=== PATIENT | female | born 2000 | race Caucasian/White ===

== ENCOUNTER 2020-07-22 09:41 | Inpatient (IN) ==
[2020-07-22] MEDS ORDERED: Famotidine 20 MG/2 ML VIAL IVP PRN (09:49)
[2020-07-22] MEDS ORDERED: Lidocaine 1% 20 ML MDV ID PRN (09:49)
[2020-07-22] MEDS ORDERED: Naloxone 0.4 MG/ML INJ IVP PRN (09:49)
[2020-07-22] MEDS ORDERED: Ondansetron 4 MG/2 ML VIAL IVP PRN (09:49)
[2020-07-22] MEDS ORDERED: Azithromycin 500 MG in 0.9 % Sodium Chloride 250 ML IVPB ONE (09:49)
[2020-07-22] MEDS ORDERED: miSOPROStoL 25 MCG TABLET PO PRN (09:49)
[2020-07-22] MEDS ORDERED: *HR* Nalbuphine 10 MG/ML AMPUL IV PRN (09:49)
[2020-07-22] MEDS ORDERED: Metoclopramide 10 MG/2 ML VIAL IVP PRN (09:49)
[2020-07-22] MEDS ORDERED: *HR* FentaNYL (PF) 100 MCG/2 ML VIAL EP ONE (10:08)
[2020-07-22] MEDS ORDERED: EPHEDrine 50 MG/ML VIAL IVP PRN (10:08)
[2020-07-22] MEDS ORDERED: Epidural Premix (fent/bupiv) 110 ML EP SCH (10:15)
[2020-07-22] MEDS ORDERED: FLU Vac QV 20-21 (6Month+)/PF 0.5 ML SYRINGE IM ONE (10:28)
[2020-07-22 10:31] LABS: Basophils # 0.1 K/mcL (0.0-0.2); Basophils % 0.6 %; Eosinophils # 0.2 K/mcL (0.0-0.6); Eosinophils % 2.6 %; Hematocrit 33.7 % (35.3-44.9); Immature Granulocytes % 0.4 % (0-4); Mean Corpuscular HGB Conc 32.6 g/dL (31.6-35.5); Mean Corpuscular Hemoglobin 28.2 pg (28.0-33.3); Mean Corpuscular Volume 86.4 fL (83.0-100.0); Mean Platelet Volume 11.7 fL (9.4-12.4); Monocytes # 0.6 K/mcL (0.0-1.3); Platelet Count 163 K/mcL (140-400); Segmented Neutrophils % 63.4 %; White Blood Count 7.8 K/mcL (4.3-11.1)
[2020-07-22 10:54] LABS: Amphetamine Screen,Urine Negative ng/mL (Cutoff=1000); Barbiturate Screen,Urine Negative ng/mL (Cutoff=200); Benzodiazepines Screen,Urine Negative ng/mL (Cutoff=200); Cannabinoid Screen,Urine Negative ng/mL (Cutoff = 50); Cocaine Screen,Urine Negative ng/mL (Cutoff= 300); Opiate Screen,Urine Negative ng/mL (Cutoff=300); Phencyclidine Screen,Urine Negative ng/mL (Cutoff=25)
[2020-07-22 10:59] LABS: Influenza A PCR Negative (Negative); Influenza B PCR Negative (Negative); Resp. Syncytial Virus PCR Negative (Negative)
[2020-07-22 11:04] LABS: SARS-CoV-2 by PCR (In House) Negative (Negative)
[2020-07-22 11:45] LABS: Creatinine,Urine 131 mg/dL; Protein/Creatinine Ratio,Urine 0.12 mg/mg (0.00-0.20)
[2020-07-22 11:47] LABS: Alanine Aminotransferase 6 Units/L (7-52); Aspartate Amino Transferase 15 Units/L (13-39); BUN/Creatinine Ratio 19 (6-26); Blood Urea Nitrogen 12 mg/dL (6-20); Lactate Dehydrogenase 192 Units/L (140-271); Uric Acid 4.8 mg/dL (2.3-7.6); eGFR For African Americans > 60 (> 60); eGFR For Non-African Americans > 60 (> 60)
[2020-07-22] MEDS ORDERED: Ropivacaine/PF 0.2% 20 ML VIAL ONE (12:40)
[2020-07-22] MEDS ORDERED: *HR* FentaNYL (PF) 100 MCG/2 ML VIAL ONE ×2 (12:40→19:22)
[2020-07-22] MEDS ORDERED: Oxytocin 20 units/ LR 1000 mL 20 UNIT/1,000 ML BAG IVC SCH (14:30)
[2020-07-22] MEDS ORDERED: Azithromycin 500 MG in 0.9 % Sodium Chloride 250 ML IVPB PRN (17:45)
[2020-07-22] MEDS: Ringers Solution, Lactated 1,000 ML ONE ×2 (17:49→18:42)
[2020-07-22] MEDS ORDERED: Ringers Solution, Lactated 1,000 ML ONE (18:39)
[2020-07-22] MEDS ORDERED: Ringers Solution, Lactated 1,000 ML IVC SCH (18:45)
[2020-07-23] MEDS ORDERED: *HR* HYDROcodone/Acet 5/325 mg TABLET PO PRN (08:55)
[2020-07-23] MEDS ORDERED: Lanolin 7 G OINT...G. TP PRN (08:55)
[2020-07-23] MEDS ORDERED: Benzocaine/Menthol 56 GM AEROSOL SPRAY TP PRN (08:55)
[2020-07-23] MEDS ORDERED: Ibuprofen 600 MG TABLET PO PRN (08:55)
[2020-07-23] MEDS ORDERED: Oxytocin 20 units/ LR 1000 mL 20 UNIT/1,000 ML BAG IVC SCH (08:55)
[2020-07-23] MEDS ORDERED: NON-FORMULARY MEDICATION 1 EACH EACH (Prenatal Vitamin Tablet 1 TAB) PO SCH (09:00)
[2020-07-23] MEDS: Prenatal Vit/FA 1 EACH TABLET PO SCH (09:27)
[2020-07-23] MEDS: Acetaminophen 325 MG TABLET PO PRN (18:18)
[2020-07-24] MEDS: Acetaminophen 325 MG TABLET PO PRN (08:22)
[2020-07-24] MEDS: Prenatal Vit/FA 1 EACH TABLET PO SCH (08:23)
[2020-07-24 08:42] VITALS: BP 132/92
[2020-07-24] MEDS ORDERED: FLU Vac QV 20-21 (6Month+)/PF 0.5 ML SYRINGE IM ONE (16:16)
== END 2020-07-24 17:00 | disposition home or self-care (01) | DRG 806 ==
LOC: 1NENULAB 09:41 → 1NENUOBS 07-23 08:05
PROVIDERS: ADMIT Advanced Practice Midwife; ATTEND Advanced Practice Midwife